=== PATIENT | female | born 1975 | race Two or more races ===

== ENCOUNTER 2020-10-08 01:01 | Emergency (ER) | payer MEDICAID, OTHER ==
[~2020-10-08] VITALS: Ht 165.1 cm; Wt 60.3 kg
[2020-10-08 01:57] LABS: Basophils # (auto) 0 10 ^3/uL (0-0.2); Basophils % (auto) 0.7 % (0.0-2.0); Eosinophils # (auto) 0.1 10 ^3/uL (0-0.8); Eosinophils % (auto) 1.8 % (0.0-7.0); Hematocrit 39.8 % (36.0-46.0); Hemoglobin 13.7 g/dL (12.2-16.2); Lymphocytes # (auto) 1.2 10 ^3/uL (0.4-5.4); Lymphocytes % (auto) 19.6 % (10.0-50.0); Mean Corpuscular Hemoglobin 31.5 pg (28.0-32.0); Mean Corpuscular Hgb Conc. 34.3 g/dL (32.0-36.0); Mean Corpuscular Volume 91.8 fL (80.0-100.0); Monocytes # (auto) 0.3 10 ^3/uL (0-1.3); Monocytes % (auto) 4.7 % (0.0-12.0); Neutrophils # (auto) 4.5 10 ^3/uL (1.6-8.6); Neutrophils % (auto) 73.2 % (37.0-80.0); Nucleated Red Blood Cells % 0.2 %; Red Blood Cells 4.34 10^6/uL (4.0-5.20); Red Cell Distribution Width 12.7 % (11.8-14.3); White Blood Cell 6.1 10^3/uL (4.4-10.8)
[2020-10-08 02:11] LABS: Albumin 4.2 g/dL (3.4-5.0); Anion Gap 6 (5-15); BUN/Creatinine Ratio 22.2; Blood Urea Nitrogen 12 mg/dL (7-18); Calcium 8.4 mg/dL (8.5-10.1); Carbon Dioxide 26 mmol/L (21-32); Chloride 108 mmol/L (98-107); GFR African American 156 mL/min; GFR Non-African American 129 mL/min; Glucose 112 mg/dL (74-106); Potassium 4.3 mmol/L (3.5-5.1); Sodium 140 mmol/L (136-145)
[2020-10-08 02:23] LABS: Alanine Aminotransferase 220 U/L (13-56); Alkaline Phosphatase 93 U/L (45-117); Aspartate Aminotransferase 280 U/L (15-37); Bilirubin, Total 0.3 mg/dL (0.2-1.0); Total Protein 7.3 g/dL (6.4-8.2)
[2020-10-08] MEDS ORDERED: LABETALOL HCL 5 MG/ML 4ML SYRINGE IV ONE ×2 (08:30→10:30)
[2020-10-08] MEDS ORDERED: SODIUM CHLORIDE 0.9% 1,000 ML IV ONE (08:30)
[2020-10-08 11:05] LABS: Urine Amorphous Crystal FEW /hpf (None Seen); Urine Bacteria FEW /hpf (None Seen); Urine Blood 2+ /uL (Negative); Urine Mucus FEW (None Seen); Urine Specific Gravity 1.015 (1.001-1.035); Urine WBC 2 /hpf (0 - 5)
[2020-10-08 11:38] VITALS: BP 125/82
[2020-10-08] MEDS ORDERED: ACETAMINOPHEN 500 MG TAB PO ONE (11:45)
== END 2020-10-08 12:02 | disposition home or self-care (01) ==
LOC: ER 01:01
DX: I10 Essential (primary) hypertension (principal); R74.8 Abnormal levels of other serum enzymes
CPT/HCPCS: 36415; 71045; 80053; 81001; 83735; 83880; 84484; 85025; 93005; 96361; 96374; 99285; J3490; J7030

== ENCOUNTER 2021-04-20 06:59 | Emergency (ER) | payer MEDICAID ==
[~2021-04-20] VITALS: Ht 165.1 cm; Wt 60.8 kg
[2021-04-20 08:00] LABS: Basophils # (auto) 0 10 ^3/uL (0-0.2); Basophils % (auto) 0.7 % (0.0-2.0); Eosinophils # (auto) 0.1 10 ^3/uL (0-0.8); Eosinophils % (auto) 2.9 % (0.0-7.0); Hemoglobin 13.9 g/dL (12.2-16.2); Lymphocytes # (auto) 1.3 10 ^3/uL (0.4-5.4); Lymphocytes % (auto) 26.6 % (10.0-50.0); Mean Corpuscular Hgb Conc. 33.9 g/dL (32.0-36.0); Mean Corpuscular Volume 91.3 fL (80.0-100.0); Monocytes # (auto) 0.3 10 ^3/uL (0-1.3); Monocytes % (auto) 5.6 % (0.0-12.0); Neutrophils # (auto) 3.2 10 ^3/uL (1.6-8.6); Neutrophils % (auto) 64.2 % (37.0-80.0); Nucleated Red Blood Cells % 0.1 %; Red Blood Cells 4.49 10^6/uL (4.0-5.20); Red Cell Distribution Width 12.3 % (11.8-14.3)
[2021-04-20 08:01] VITALS: BP 139/85
[2021-04-20 08:10] LABS: Albumin 4.1 g/dL (3.4-5.0); Calcium 8.7 mg/dL (8.5-10.1); Potassium 4.4 mmol/L (3.5-5.1)
[2021-04-20 08:15] LABS: BUN/Creatinine Ratio 14.5; Bilirubin, Total 0.5 mg/dL (0.2-1.0); Total Protein 7.3 g/dL (6.4-8.2)
[2021-04-20] MEDS ORDERED: ALPRAZolam 0.5 MG TAB PO ONE (08:15)
[2021-04-20] MEDS ORDERED: LISI20TA28 PO (09:17)
[2021-04-20] MEDS ORDERED: HYDR50CA PO (09:17)
== END 2021-04-20 09:42 | disposition home or self-care (01) ==
LOC: ER 06:59
DX: F41.9 Anxiety disorder, unspecified (principal); F32.9 Major depressive disorder, single episode, unspecified; I10 Essential (primary) hypertension; Z88.2 Allergy status to sulfonamides
CPT/HCPCS: 36415; 71045; 80053; 83880; 84484; 85025; 93005

== ENCOUNTER 2022-03-19 00:03 | Emergency (ER) | payer MEDICAID ==
[~2022-03-19] VITALS: Ht 165.1 cm; Wt 59.0 kg
[~2022-03-19 00:03] MED LIST: HYDR50CA PO; LISI20TA28 PO
[2022-03-19 02:45] VITALS: BP 150/91
== END 2022-03-19 03:16 | disposition home or self-care (01) ==
LOC: ER 00:03
DX: I10 Essential (primary) hypertension (principal); R51.9 Headache, unspecified
CPT/HCPCS: 70450

== ENCOUNTER 2024-07-26 14:47 | Emergency (ER) | payer MEDICAID ==
[~2024-07-26] VITALS: Ht 165.1 cm; Wt 60.6 kg
[~2024-07-26 14:47] MED LIST changes: -LISI20TA28 PO; +LISI20TA56 PO
[2024-07-26 15:27] VITALS: BP 157/87; PULSE 105; RESP 16; TEMP 99.9; O2SAT 98
--- NOTE | 2024-07-26 15:57 | ED.PDOC ---
Musculoskeletal HPI Comments This is a 49-year-old female who comes in with right hip pain. She apparently walks every day for exercise today she was wearing a higher heel and when she was walking her right ankle buckled causing a strain on her right hip. Since then she has had right hip pain she never actually fell to the floor and. Chief Complaint: Lower Extremity Time Seen by MD: 16:42 Primary Care Provider: NIKKO NUGENT Reviewed Notes: Nurses Notes, Medications, Allergies Allergies: Coded Allergies: Sulfa Antibiotics (Verified Allergy, Unknown, 04/20/21) Home Meds Active Scripts Hydroxyzine Pamoate (Vistaril) 50 Mg Cap, 50 MG PO DAILY for 20 Days, #20 CAP Prov:ARUNA BAKER 04/20/21 Lisinopril (Lisinopril) 20 Mg Tab, 10 MG PO DAILY for 20 Days, #20 TAB Prov:ARUNA BAKER 04/20/21 Information Source: Patient Mode of Arrival: Ambulatory Past Medical History PAST MEDICAL HISTORY: Anxiety, Depression, HTN Surgical History: Denies all surgeries [employer] History: Denies all [employer] Hx Family History Family History: Reviewed,noncontributory to illness Social History Smoker: Non-Smoker Alcohol: Denies ETOH Use Drugs: Denies Drug Use Lives In: Home Musculoskeletal: reports: joint pain (Pain in the right hip) All Other Systems: Reviewed and Negative Physical Exam General Appearance: No Apparent Distress, None, Normal HEENT: Normal ENT Inspection, PERRL/EOMI, Pharynx Normal Neck: Full Range of Motion, Non-Tender, Normal, Normal Inspection Respiratory: Lungs Clear, No Respiratory Distress, Normal Breath Sounds Cardiovascular: Regular Rate/Rhythm Breast Exam: Deferred Gastrointestinal: Non Tender, Normal Bowel Sounds Genitalia: Deferred Pelvic: Deferred Rectal: Deferred Extremities: Decreased range of motion (Pain with extension over the right hip and groin), Pelvis stable, Tender Neurologic: Alert, Normal Affect, Normal Mood Cerebellar Function: NOT DONE Reflexes: NOT DONE Skin: Dry, Warm Lymphatic: No Adenopathy Was a procedure done? Was a procedure done?: No Differential Diagnosis EXT Differential Diagnosis: Fracture, Dislocation X-Ray, Labs, Meds, VS Vital Signs Date Time Temp Pulse Resp B/P (MAP) Pulse Ox O2 Delivery O2 Flow Rate FiO2 07/26/24 15:27 99.9 105 16 157/87 (110) 98 99.9 07/26/24 15:27 105 16 98 Room Air 07/26/24 15:00 99.9 105 16 157/87 (110) 98 99.9 X-Ray, Labs, Meds, VS Comment Patient seen and examined by me. Patient does pain over the right groin area, she is able to ambulate. An x-ray was done which shows no fracture. Patient will be given a shot of Toradol for pain relief as well as anti-inflammatories to go home with. I have instructed her to limit walking this week until symptoms are completely gone. ORDERING PHYSICIAN: ZHAO HARPER PROCEDURE(s): RHIP - R HIP COMPLETE XRAY REASON: fall ORDER NUMBER(s): [id number], ACCESSION NUMBER(s): [id number] CLINICAL INDICATION: fall, trauma, pain TECHNIQUE: XY R HIP COMPLETE XRAY Comparison: None FINDINGS/IMPRESSION: : There is no evidence of acute fracture or dislocation. Soft tissues are unremarkable. Moderate degenerative changes of bilateral hips, [id number]. ATED BY: DARRYL LARKIN MD DICTATED DATE/TIME: 07/26/24 1621 SIGNED BY: DARRYL LARKIN MD Time of 1ST Reevaluation: 16:46 Reevaluation 1ST: Improved Patient Education/Counseling: Diagnosis, Treatment, Prognosis, Need For Follow Up Family Education/Counseling: No Family Present Departure 1 Departure Time of Disposition: 17:30 Impression: Primary Impression: Strain of right inguinal muscle Disposition: HOME / SELF CARE / HOMELESS Condition: Good Additional Instructions: Leg immediately start taking the Motrin tomorrow for pain And inflammation Limit your walking for the next couple of days until you have no more pain Okay to apply moist heat to the area Your x-ray does not show any broken bones e-Prescriptions Ibuprofen Micronized (Ibuprofen) 600 Mg Tab 600 MG PO [id number] PRN for 5 Days, #20 TAB Prov: ZHAO HARPER 07/26/24 Discharged With: Self Critical Care Note Critical Care Time?: No Stability Stability form required: No ZHAO HARPERP Jul 26, 2024 15:57
--- NOTE | 2024-07-26 16:24 | DVH ---
CLINICAL INDICATION: fall, trauma, pain TECHNIQUE: XY R HIP COMPLETE XRAY Comparison: None FINDINGS/IMPRESSION: : There is no evidence of acute fracture or dislocation. Soft tissues are unremarkable. Moderate degenerative changes of bilateral hips, [id number].
[2024-07-26] MEDS ORDERED: IBUP1TAB5 PO (16:48)
[2024-07-26] MEDS: KETOROLAC TROMETH 60MG/2ML VIAL IM ONE (16:59)
== END 2024-07-26 16:50 | disposition home or self-care (01) ==
LOC: ER 14:56
DX: S39.011A Strain of muscle, fascia and tendon of abdomen, initial encounter (principal); F41.9 Anxiety disorder, unspecified; I10 Essential (primary) hypertension; Z88.2 Allergy status to sulfonamides; Z79.899 Other long term (current) drug therapy; X58.XXXA Exposure to other specified factors, initial encounter; Y93.89 Activity, other specified; Y92.89 Other specified places as the place of occurrence of the external cause; Y99.8 Other external cause status
CPT/HCPCS: 73502; 96372; 99283; J1885